=== PATIENT | female | born 1975 | race Caucasian/White ===

== ENCOUNTER 2017-01-03 14:50 | Emergency (ER) | payer OTHER ==
[2017-01-03] MEDS ORDERED: KETOROLAC TROMETHAMINE 60 MG/2 ML VIAL ONE (15:31)
[2017-01-03] MEDS ORDERED: ONDANSETRON 4 MG ODT TAB ONE (15:31)
--- NOTE | 2017-01-03 16:04 | RAD ---
Name: [facility] [employer] Exam: Lumbar spine Comparison: None Clinical history: Low back pain Findings: 3 views of the lumbar spine are submitted. Bone density is normal. Alignment is normal. There is no compression fracture or disc space narrowing. Limited views the SI joints and the hips are normal. Psoas shadows are sharp. Impression: Negative three-view lumbar spine series
[2017-01-03] MEDS ORDERED: PROMETHAZINE HCL 25 MG/ML VIAL ONE (16:11)
== END 2017-01-03 16:58 | disposition home or self-care (01) ==
LOC: ED 14:50
DX: M54.9 Dorsalgia, unspecified (principal); F17.210 Nicotine dependence, cigarettes, uncomplicated; W19.XXXA Unspecified fall, initial encounter; Y92.9 Unspecified place or not applicable
CPT/HCPCS: 72100; 99283 ×2; 96372 ×2; J2550; J1885; A9270